=== PATIENT | female | born 1925 | race Caucasian/White ===

== ENCOUNTER 2017-03-01 07:20 | Observation (INO) | payer MEDICARE, OTHER ==
[~2017-03-01 07:20] MED LIST: CIPRO500 M2 PO; COUMADIN2 MG; COUMADIN4 MG; FLAGYL500 M1 PO; LANOXIN; LANOXIN125 MC3 PO; LEVOTHYROXINE75 MC3 PO; NEURONTIN600 M1 PO; NEURONTIN600 MG; NORCO 5-325 TA1 EACH PO; PRADAXA75 M1 PO; RANITIDINE HCL150 M2 PO; SYNTHROID100 MCG; TYLENOL EXTRA500 M1 PO; ULTRACET TABLE1 EACH PO; VITAMIN D31000 UNI4 PO
[2017-03-01 07:55] LABS: HCT-HEMATOCRIT 36.9 % (34.0-49.0); HGB-HEMOGLOBIN 12.4 gm/dl (12.0-15.5); MCV (MEAN CELL VOLUME) 90.4 fl (82.0-96.0); NEUTROPHIL-AUTOMATED 4.3 tho/cmm (1.6-8.0); RED BLOOD COUNT 4.08 mil/cmm (4.00-5.20); WHITE BLOOD COUNT 5.3 tho/cmm (4.0-10.0)
[2017-03-01 07:56] LABS: BASO % 0.2 % (0-2); EOS % 0.8 % (0-7); IMMATURE GRANULOCYTES ABSOLUTE 0.01 tho/cmm (0-0.03); IMMATURE GRANULOCYTES PERCENT 0.2 % (0-0.3); LYMPH ABSOLUTE COUNT 0.7 tho/cmm (0.8-4.5); MCH (MEAN CORPUSCULAR HGB) 30.4 pg (28.0-32.0); MCHC MEAN CORPUSCULAR HGB CONC 33.6 % (32.0-36.0); MEAN PLATELET VOLUME 9.4 cmc (9.4-12.4); MONO % 5.3 % (0-12); MONOCYTE ABSOLUTE COUNT 0.3 tho/cmm (0.0-1.2); NEUTROPHIL ABSOLUTE COUNT 4.3 tho/cmm (1.6-8.0); NEUTROPHILS % 80.5 % (40-80); PLATELET COUNT 185 tho/cmm (150-450); RED CELL DISTRIBUTION WIDTH 14.1 % (12.4-16.4)
[2017-03-01] MEDS ORDERED: HYDROCHLOROTHIA25 M1 PO (08:11)
[2017-03-01] MEDS ORDERED: TENORMIN25 M1 PO (08:11)
[2017-03-01 08:12] LABS: ANION GAP 13 mmol/L (0-20); BLOOD UREA NITROGEN 12 mg/dl (6-24); CALCIUM 8.6 mg/dl (8.5-10.5); CARBON DIOXIDE-VENOUS 25 mmol/L (22-32); CHLORIDE 103 mmol/l (96-110); CREATININE 0.56 mg/dl (0.50-1.10); GLUCOSE 114 mg/dL (70-110); POTASSIUM 3.8 mmol/L (3.7-5.1); SODIUM 137 mmol/L (135-145); eGFR VALUE FOR BLACK >90 mL/Min
[2017-03-01 09:36] LABS: URINE BILIRUBIN NEGATIVE (NEG); URINE BLOOD NEGATIVE (NEG); URINE GLUCOSE (UA) NEGATIVE (NEG); URINE KETONE NEGATIVE (NEG); URINE LEUKOCYTE ESTERASE NEGATIVE (NEG); URINE NITRITE NEGATIVE (NEG); URINE PROTEIN NEGATIVE (NEG)
[2017-03-01 09:37] LABS: URINE APPEARANCE CLEAR; URINE COLOR YELLOW
[2017-03-02 05:48] LABS: ANION GAP 10 mmol/L (0-20); BLOOD UREA NITROGEN 10 mg/dl (6-24); CALCIUM 8.2 mg/dl (8.5-10.5); CARBON DIOXIDE-VENOUS 28 mmol/L (22-32); CHLORIDE 106 mmol/l (96-110); CHOLESTEROL 164 mg/dl (120-200); CREATININE 0.61 mg/dl (0.50-1.10); GLUCOSE 81 mg/dL (70-110); HDL CHOLESTEROL 106 mg/dl (40-60); LDL CHOLESTEROL 51 mg/dl (0-99); SODIUM 140 mmol/L (135-145); TRIGLYCERIDES 38 mg/dl (<149); VLDL 8 mg/dl (0-30); eGFR VALUE FOR BLACK >90 mL/Min
[2017-03-02 05:52] LABS: TSH-THYROID STIMULATING HORM. 1.48 uIU/ml (0.40-3.80)
== END 2017-03-02 11:10 ==
LOC: EDMED 07:20 → EMR2 11:05 → CAR1 14:00
PROVIDERS: Emergency Medicine; Nurse Practitioner; ADMIT Internal Medicine
DX: R53.1 Weakness (principal); R41.0 Disorientation, unspecified; G93.40 Encephalopathy, unspecified; R42 Dizziness and giddiness; R53.83 Other fatigue; I48.2 Chronic atrial fibrillation; I10 Essential (primary) hypertension; E03.9 Hypothyroidism, unspecified; K21.9 Gastro-esophageal reflux disease without esophagitis; M79.7 Fibromyalgia; G62.9 Polyneuropathy, unspecified; Z79.899 Other long term (current) drug therapy; Z88.0 Allergy status to penicillin; Z88.4 Allergy status to anesthetic agent; Z87.891 Personal history of nicotine dependence; Z90.49 Acquired absence of other specified parts of digestive tract; Z90.89 Acquired absence of other organs; Z98.890 Other specified postprocedural states
CPT/HCPCS: G0378; G8978-GP-CJ; G8979-GP-CI; G8980-GP-CJ; G8987-GO-CJ; G8988-GO-CI; G8989-GO-CJ; J2405; J7030